=== PATIENT | female | born 1975 ===

== ENCOUNTER 2017-06-25 19:23 | Emergency (ER) | payer OTHER ==
[2017-06-25 19:33] VITALS: TEMP 97.4; BMI 27.6
--- NOTE | 2017-06-25 20:25 | PDOC ---
History of Present Illness <Heidi Quinonez - Last Filed: 06/25/17 22:34> - General History Source: Patient Exam Limitations: No Limitations - History of Present Illness Initial Comments: 06/25/17 20:25 The patient is a 42 year old female, (), with no significant past medical history who presents to the ED with complaints of epigastric pain since earlier today. The patient reports constant epigastric pain radiating to her upper and mid back. She states she visited her OBGYN last week and had a normal US showing a live uterine at 8 weeks with heart tones. Denies lower back pain. Denies pelvic cramping. Denies vaginal bleeding. Denies nausea, vomiting, or diarrhea. Denies chest pain or shortness of breath. Denies any other symptoms. <Ashok Munguia - Last Filed: 06/25/17 22:35> - General Chief Complaint: Pain Stated Complaint: PAIN ( 12WKS ) Time Seen by Provider: 06/25/17 20:08 Past History - Past Medical History COPD: No - Reproductive History Is Patient Now?: Yes - Immunization History Immunization Up to Date: Yes - Suicide/Smoking/Psychosocial Hx Smoking History: Never smoked <Heidi Quinonez - Last Filed: 06/25/17 22:34> <Ashok Munguia - Last Filed: 06/25/17 22:35> - Past Medical History Allergies/Adverse Reactions: Allergies Allergy/AdvReac Type Severity Reaction Status Date / Time No Known Allergies Allergy Verified 06/25/17 19:28 Review of Systems - Review of Systems Able to Perform ROS?: Yes Comments:: 06/25/17 20:26 CONSTITUTIONAL: Absent: fever, chills, diaphoresis, generalized weakness, malaise, loss of appetite HEENT: Absent: rhinorrhea, nasal congestion, throat pain, throat swelling, difficulty swallowing, mouth swelling, ear pain, eye pain, visual Changes CARDIOVASCULAR: Absent: chest pain, syncope, palpitations, irregular heart rate, lightheadedness , peripheral edema RESPIRATORY: Absent: cough, shortness of breath, dyspnea with exertion, orthopnea, wheezing, stridor, hemoptysis GASTROINTESTINAL: + epigastric pain Absent: abdominal distension, nausea, vomiting, diarrhea, constipation, melena, hematochezia GENITOURINARY: Absent: dysuria, frequency, urgency, hesitancy, hematuria, flank pain, genital pain MUSCULOSKELETAL: + back pain Absent: joint swelling SKIN: Absent: rash, itching, pallor HEMATOLOGIC/IMMUNOLOGIC: Absent: easy bleeding, easy bruising, lymphadenopathy, frequent infections ENDOCRINE: Absent: unexplained weight gain, unexplained weight loss, heat intolerance, cold intolerance NEUROLOGIC: Absent: headache, focal weakness or paresthesias, dizziness, unsteady gait, seizure, mental status changes, bladder or bowel incontinence PSYCHIATRIC: Absent: anxiety, depression, suicidal or homicidal ideation, hallucinations. All Other Systems: Reviewed and Negative <Ashok Munguia - Last Filed: 06/25/17 22:35> *Physical Exam - Vital Signs Last Vital Signs Temp Pulse Resp BP Pulse Ox 97.4 F L 70 20 86/58 100 06/25/17 19:28 06/25/17 19:28 06/25/17 19:28 06/25/17 19:28 06/25/17 19:28 <Heidi Quinonez - Last Filed: 06/25/17 22:34> - Vital Signs Last Vital Signs Temp Pulse Resp BP Pulse Ox 97.4 F L 70 20 86/58 100 06/25/17 19:28 06/25/17 19:28 06/25/17 19:28 06/25/17 19:28 06/25/17 19:28 - Physical Exam Comments: 06/25/17 20:26 GENERAL: Well developed, well nourished. Awake and alert. No acute distress. HEENT: Normocephalic, atraumatic. PERRLA, EOMI. No conjunctival pallor. Sclera are non- icteric. Moist mucous membranes. Oropharynx is clear. NECK: Supple. Full ROM. No JVD. Carotid pulses 2+ and symmetric, without bruits. No thyromegaly. No lymphadenopathy. CARDIOVASCULAR: Regular rate and rhythm. No murmurs, rubs, or gallops. Distal pulses are 2+ and symmetric. PULMONARY: No evidence of respiratory distress. Lungs clear to auscultation bilaterally. No wheezing, rales or rhonchi. ABDOMINAL: + Epigastric tenderness, epigastric pain radiating to her shoulder blades Soft. Non-distended. No rebound or guarding. No organomegaly. Normoactive bowel sounds. MUSCULOSKELETAL Normal range of motion at all joints. No bony deformities or tenderness. No CVA tenderness. EXTREMITIES: No cyanosis. No clubbing. No edema. No calf tenderness. SKIN: Warm and dry. Normal capillary refill. No rashes. No jaundice. NEUROLOGICAL: Alert, awake, appropriate. Cranial nerves 2-12 intact. No deficits to light touch and temperature in face, upper extremities and lower extremities. No motor deficits in the in face, upper extremities and lower extremities. Normoreflexic in the upper and lower extremities. Normal speech. Toes are down- going bilaterally. Gait is normal without ataxia. PSYCHIATRIC: Cooperative. Good eye contact. Appropriate mood and affect. <Ashok Munguia - Last Filed: 06/25/17 22:35> ED Treatment Course - LABORATORY CBC & Chemistry Diagram: 06/25/17 20:20 06/25/17 20:20 - RADIOLOGY Radiology Studies Ordered: Category Date Time Status ABDOMEN US -LIMITED [US] Stat Ultrasound 06/25/17 20:23 Ordered <Heidi Quinonez - Last Filed: 06/25/17 22:34> - LABORATORY CBC & Chemistry Diagram: 06/25/17 20:20 06/25/17 20:20 - RADIOLOGY Radiograph Interpretation: 06/25/17 22:34 EXAM: Ultrasound abdomen, right upper quadrant FINDINGS: 1. The liver, visualized portion of the pancreas, common hepatic duct, right kidney, main portal vein and upper abdominal aorta are unremarkable in appearance. 2. The gallbladder is moderately distended and without evidence of gallstones or gallbladder wall thickening. There is no demonstration of pericholecystic fluid. No definite ultrasound evidence of acute cholecystitis. Reported by: Imaging saxophone player <Ashok Munguia - Last Filed: 06/25/17 22:35> Medical Decision Making - Medical Decision Making 06/25/17 22:29 42 yo Female 2, para 1, presents with epigastric pain and vomiting. Patient has a follow-up appointment and have a pelvic ultrasound last week that showed an IUP of 8 weeks. She is [facility] at[facility] for her care She denies any pelvic cramping or vaginal bleeding. Exam she has some mild epigastric tenderness to deep palpation, but there was no guarding or rebound She does not have fever or chills. She does not have diarrhea. Ultrasound of the abdomen and right upper quadrant shows that the gallbladder is moderately distended without any evidence of gallstones or gallbladder wall thickening. There is no evidence for acute cholecystitis Liver, pancreas and right kidney and upper abdominal aorta are unremarkable -Chemistries were reviewed in the patient has a normal lipase and her liver function tests are within normal limits Impression gastritis Patient discharged home <Heidi Quinonez - Last Filed: 06/25/17 22:34> *DC/Admit/Observation/Transfer <Heidi Quinonez - Last Filed: 06/25/17 22:34> - Attestations Scribe Attestion: 06/25/17 20:26 Documentation prepared by Ashok Munguia, acting as medical parasitologist for Heidi Quinonez MD <Ashok Munguia - Last Filed: 06/25/17 22:35> Diagnosis at time of Disposition: Gastritis Qualifiers: Gastritis type: unspecified gastritis Chronicity: acute Gastritis bleeding: without bleeding Qualified Code(s): K29.00 - Acute gastritis without bleeding - Discharge Dispostion Disposition: HOME Condition at time of disposition: Stable - Patient Instructions Printed Discharge Instructions: DI for Gastritis Additional Instructions: please avoid fatty or fried foods followup with your floor hand
[2017-06-25 20:35] LABS: BASO % 0.6 % (0-2.0); EOS % 1.8 % (0-4.5); HEMATOCRIT 32.5 % (32.4-45.2); LYMPH % 10.7 % (8-40); MCH 29.3 pg (25.7-33.7); MEAN CELL VOLUME 86.1 fl (80-96); MEAN PLT VOLUME 9.3 fl (7.5-11.1); NEUT % 80.9 % (42.8-82.8); PLATELET COUNT 229 K/MM3 (134-434); RBC 3.77 M/mm3 (3.60-5.2); RDW 14.3 % (11.6-15.6); WHITE BLOOD COUNT 13.7 K/mm3 (4.0-10.0)
[2017-06-25 21:05] LABS: ALBUMIN 3.1 g/dl (3.4-5.0); ANION GAP 6 (8-16); BILIRUBIN,TOTAL 0.2 mg/dL (0.2-1.0); BLOOD UREA NITROGEN 7 mg/dL (7-18); CALCIUM 8.4 mg/dL (8.5-10.1); CHLORIDE 106 mmol/L (98-107); CO2 26 mmol/L (21-32); CREATININE 0.5 mg/dL (0.55-1.02); GLUCOSE,RANDOM 111 mg/dL (74-106); POTASSIUM 4.2 mmol/L (3.5-5.1); SGOT/AST 16 U/L (15-37); SGPT/ALT 21 U/L (12-78); SODIUM 138 mmol/L (136-145)
[2017-06-25 21:06] LABS: ALK PHOS 56 U/L (45-117)
[2017-06-25] MEDS ORDERED: ACETAMINOPHEN 325 MG TABLET (FP) PO ONE (21:41)
[2017-06-25] MEDS ORDERED: ACETAMINOPHEN 325 MG TABLET (FP) ONE (21:50)
[2017-06-25 23:03] VITALS: BP 100/60; PULSE 80
== END 2017-06-25 23:02 | disposition home or self-care (01) ==
LOC: JER 19:23
DX: O99.611 Diseases of the digestive system complicating pregnancy, first trimester (principal); K29.00 Acute gastritis without bleeding; Z3A.01 Less than 8 weeks gestation of pregnancy
CPT/HCPCS: 36415; 76705-TC; 80053; 82962; 83690; 85025; 99282-25

== ENCOUNTER 2018-01-20 02:05 | Inpatient (IN) | payer OTHER ==
[2018-01-20] MEDS ORDERED: ELECTROLYTE-148 SOLN 500 ML IV ONE ×2 (03:00→04:00)
[2018-01-20] MEDS ORDERED: ELECTROLYTE-148 SOLN 1,000 ML IV ONE (04:30)
[2018-01-20] MEDS ORDERED: BUTORPHANOL TARTRATE 1 MG/ML VIAL IVPB ONE (04:30)
[2018-01-20] MEDS ORDERED: PROMETHAZINE HCL 25 MG/1 ML VIAL IVPB ONE (04:30)
[2018-01-20 05:05] VITALS: BMI 30.7
[2018-01-20 05:11] LABS: BASO % 0.9 % (0-2.0); EOS % 1.8 % (0-4.5); HEMATOCRIT 32.1 % (32.4-45.2); HEMOGLOBIN 10.4 GM/dL (10.7-15.3); LYMPH % 17.4 % (8-40); MCH 28.5 pg (25.7-33.7); MCHC 32.4 g/dl (32.0-36.0); MEAN CELL VOLUME 87.9 fl (80-96); MONO % 6.1 % (3.8-10.2); NEUT % 73.8 % (42.8-82.8); PLATELET COUNT 152 K/MM3 (134-434); RBC 3.65 M/mm3 (3.60-5.2); RDW 13.8 % (11.6-15.6); WHITE BLOOD COUNT 12.3 K/mm3 (4.0-10.0)
[2018-01-20 05:23] LABS: INR 0.87 (0.83-1.09); PROTHROMBIN TIME (PATIENT) 10.2 SEC (9.7-13.0)
[2018-01-20 05:26] LABS: ACTIVATED PTT 28.1 SECONDS (25.2-36.5)
[2018-01-20 05:28] LABS: ANION GAP 10 MMOL/L (8-16); BLOOD UREA NITROGEN 6 mg/dL (7-18); CALCIUM 8.3 mg/dL (8.5-10.1); CHLORIDE 106 mmol/L (98-107); CO2 24 mmol/L (22-28); CREATININE 0.5 mg/dL (0.55-1.3); GLUCOSE,RANDOM 87 mg/dL (74-106); POTASSIUM 3.6 mmol/L (3.5-5.1); SODIUM 139 mmol/L (136-145)
[2018-01-20] MEDS: OXYTOCIN 20 UNITS in 0.9% NS 20 UNIT/1,000 ML INFUS.BAG IV SCH ×2 (05:50→10:20)
[2018-01-20] MEDS ORDERED: WITCH HAZEL 50% (TUCKS) 40 PAD/JAR PAD TP PRN (06:09)
[2018-01-20] MEDS ORDERED: BENZOCAINE 28 GM HEMORRHOIDAL OINTMENT TP PRN (06:09)
[2018-01-20] MEDS ORDERED: BENZOCAINE 20% 57 GM BOTTLE TP PRN (06:09)
[2018-01-20] MEDS ORDERED: METHYLERGONOVINE MALEATE 0.2 MG/1 ML AMP IM PRN (06:09)
[2018-01-20] MEDS ORDERED: BISACODYL 10 MG SUPP.RECT RC PRN (06:09)
--- NOTE | 2018-01-20 06:11 | PN ---
Delivery - Delivery Vaginal Delivery: Spontaneous Type of Anesthesia: Local Episiotomy/Laceration: Perineal Extension/lac Delivery, Single - Hydro Feeding Plan Initial Plan: Elected not to breastfeed exclusively throughout hospitalization
[2018-01-20] MEDS ORDERED: D5W-LR W/ 20 UNITS OXYTOCIN 1,000 ML IV SCH (06:15)
--- NOTE | 2018-01-20 06:18 | HP ---
Past Medical History - Primary Care Physician PCP:: Glo Harrington - Admission Chief Complaint: Lablor/Preciptous delivery History of Present Illness: 42 yo 39.2 by usg AMA gestational DM with precipitous delivery Baby doing well History Source: Patient Limitations to Obtaining History: No Limitations - Past Medical History ...: 2 ...Para: 1 ...Term: 1 ...: 0 ...Spon : 0 ...Induced : 0 ...Multiple Gestation: 0 ...LMP: 04/23/17 ... Weeks Gestation by Dates: 38.6 ...EDC by Dates: 01/28/18 ...EDC by Sono: 01/25/18 Endocrine: Yes: Diabetes Mellitus - Past Surgical History Past Surgical History: Yes: None Hx Myomectomy: No Hx Transabdominal Cerclage: No - Smoking History Smoking history: Never smoked Have you smoked in the past 12 months: No - Alcohol/Substance Use Hx Alcohol Use: No History of Substance Use: reports: None - Social History Usual Living Arrangement: Yes: With Spouse History of Recent Travel: No Home Medications - Allergies Allergies/Adverse Reactions: Allergies Allergy/AdvReac Type Severity Reaction Status Date / Time No Known Allergies Allergy Verified 01/20/18 02:49 Review of Systems - Review of Systems Constitutional: reports: No Symptoms Eyes: reports: No Symptoms HENT: reports: No Symptoms Neck: reports: No Symptoms Cardiovascular: reports: No Symptoms Respiratory: reports: No Symptoms Gastrointestinal: reports: No Symptoms Genitourinary: reports: No Symptoms Breasts: reports: No Symptoms Reported Musculoskeletal: reports: No Symptoms Integumentary: reports: No Symptoms Neurological: reports: No Symptoms Endocrine: reports: No Symptoms Hematology/Lymphatic: reports: No Symptoms Psychiatric: reports: No Symptoms Physical Exam - Maternity Vital Signs: Vital Signs Temperature 98.6 F 01/20/18 02:50 Pulse Rate 68 01/20/18 02:50 Respiratory Rate 19 01/20/18 02:50 Blood Pressure 123/81 01/20/18 02:50 O2 Sat by Pulse Oximetry (%) - Labs Lab Results: CBC, BMP 01/20/18 04:58 01/20/18 04:58 Hemorrhage Risk Assessment - Risk Factors Risk Score: 0 Risk Level: Low Risk Problem List - Problems (1) Normal vaginal delivery Code(s): O80 - ENCOUNTER FOR FULL-TERM UNCOMPLICATED DELIVERY Assessment/Plan IUP @ 39 wk gestational DM 39.2 wk by usg AMA Plan precipitous vaginal delivery
[2018-01-20] MEDS: ACETAMINOPHEN 325 MG TABLET (FP) PO ONE ×2 (06:37→16:20)
[2018-01-20] MEDS: FERROUS SO4 325 MG TABLET (FP) PO SCH ×2 (08:38→17:49)
[2018-01-20] MEDS ORDERED: OXYTOCIN 20 UNITS in 0.9% NS 20 UNIT/1,000 ML INFUS.BAG IV ONE (08:44)
[2018-01-20] MEDS ORDERED: LIDOCAINE HCL 1% PRESERVATIVE FREE - 30ML VIAL ONE (08:54)
--- NOTE | 2018-01-20 09:08 | PN ---
Progress Note (short form) - Note Progress Note: Came to evaluate patient for bleeding from periurethral laceration. Laceration repaired with 3-0 vicryl suture, hemostatic after repair. norwood catheter placed, to remove this evening approx 200cc of bleeding noted on gaby and sponges total from prior to and after repair will check CBC at noon ok for regular diet
[2018-01-20] MEDS: PRENATAL VITAMINS W/ FOLIC ACID TABLET (FP) PO SCH (10:20)
[2018-01-20] MEDS ORDERED: FERROUS SO4 325 MG TABLET (FP) PO ONE (10:45)
[2018-01-20] MEDS ORDERED: TUBERCULIN PPD 5 TU/0.1ML SYRINGE (IN PATIENT USE ONLY) ID ONE (12:00)
[2018-01-20 13:48] LABS: BASO % 0.2 % (0-2.0); EOS % 0.1 % (0-4.5); HEMATOCRIT 27.2 % (32.4-45.2); HEMOGLOBIN 8.7 GM/dL (10.7-15.3); LYMPH % 6.2 % (8-40); MCH 28.3 pg (25.7-33.7); MCHC 32.1 g/dl (32.0-36.0); MEAN CELL VOLUME 88.4 fl (80-96); MEAN PLT VOLUME 10.9 fl (7.5-11.1); NEUT % 87.5 % (42.8-82.8); PLATELET COUNT 154 K/MM3 (134-434); RBC 3.07 M/mm3 (3.60-5.2); RDW 13.9 % (11.6-15.6); WHITE BLOOD COUNT 14.7 K/mm3 (4.0-10.0)
[2018-01-20] MEDS: IBUPROFEN 600 MG TABLET (FP) PO PRN (16:19)
[2018-01-21] MEDS: ACETAMINOPHEN 325 MG TABLET (FP) PO PRN ×2 (01:23→16:24)
[2018-01-21] MEDS: IBUPROFEN 600 MG TABLET (FP) PO PRN ×2 (01:24→16:23)
[2018-01-21 08:15] LABS: BASO % 0.5 % (0-2.0); EOS % 1.7 % (0-4.5); HEMATOCRIT 27.3 % (32.4-45.2); HEMOGLOBIN 8.7 GM/dL (10.7-15.3); LYMPH % 14.7 % (8-40); MCH 28.4 pg (25.7-33.7); MCHC 31.9 g/dl (32.0-36.0); MEAN PLT VOLUME 10.5 fl (7.5-11.1); NEUT % 78.1 % (42.8-82.8); PLATELET COUNT 139 K/MM3 (134-434); RBC 3.06 M/mm3 (3.60-5.2); RDW 14.1 % (11.6-15.6); WHITE BLOOD COUNT 10.2 K/mm3 (4.0-10.0)
[2018-01-21] MEDS: FERROUS SO4 325 MG TABLET (FP) PO SCH ×2 (08:20→17:30)
[2018-01-21] MEDS: PRENATAL VITAMINS W/ FOLIC ACID TABLET (FP) PO SCH (09:18)
--- NOTE | 2018-01-21 21:00 | PN ---
Post Progress Note - Subjective Subjective: Pt doing well. No acute events overnight,no complaints Type of Delivery: Vital Signs: Vital Signs Temperature 98.5 F 01/21/18 10:00 Pulse Rate 103 H 01/21/18 10:00 Respiratory Rate 20 01/21/18 10:00 Blood Pressure 110/74 01/21/18 10:00 O2 Sat by Pulse Oximetry (%) 99 01/20/18 06:45 Breast Exam: Yes: Soft Uterus: Yes: Fundus Firm Lochia: Yes: Rubra Lochia, amount: Small Perineum: Yes: Laceration Activity: Ambulating - Labs Labs: CBC WBC 10.2 K/mm3 (4.0-10.0) H 01/21/18 07:38 RBC 3.06 M/mm3 (3.60-5.2) L 01/21/18 07:38 Hgb 8.7 GM/dL (10.7-15.3) L 01/21/18 07:38 Hct 27.3 % (32.4-45.2) L 01/21/18 07:38 MCV 89.0 fl (80-96) 01/21/18 07:38 MCH 28.4 pg (25.7-33.7) 01/21/18 07:38 MCHC 31.9 g/dl (32.0-36.0) L 01/21/18 07:38 RDW 14.1 % (11.6-15.6) 01/21/18 07:38 Plt Count 139 K/MM3 (134-434) 01/21/18 07:38 MPV 10.5 fl (7.5-11.1) 01/21/18 07:38 Absolute Neuts (auto) 8.0 K/mm3 (1.5-8.0) 01/21/18 07:38 Neutrophils % 78.1 % (42.8-82.8) 01/21/18 07:38 Lymphocytes % 14.7 % (8-40) D 01/21/18 07:38 Monocytes % 5.0 % (3.8-10.2) 01/21/18 07:38 Eosinophils % 1.7 % (0-4.5) D 01/21/18 07:38 Basophils % 0.5 % (0-2.0) 01/21/18 07:38 Nucleated RBC % 0 % (0-0) 01/21/18 07:38 Problem List - Problems (1) Normal vaginal delivery Code(s): O80 - ENCOUNTER FOR FULL-TERM UNCOMPLICATED DELIVERY (2) Anemia Code(s): D64.9 - ANEMIA, UNSPECIFIED Assessment/Plan regular diet ambulation prenatals ajd PO iron routine care
[2018-01-21] MEDS ORDERED: SENNOSIDES/DOCUSATE COMBO (SENNA PLUS) TABLET (UD) PO PRN (22:00)
[2018-01-22] MEDS: IBUPROFEN 600 MG TABLET (FP) PO PRN ×2 (00:59→09:50)
[2018-01-22] MEDS: ACETAMINOPHEN 325 MG TABLET (FP) PO PRN ×2 (00:59→09:53)
[2018-01-22 07:42] VITALS: BP 114/64; PULSE 86; TEMP 98.1
[2018-01-22] MEDS: FERROUS SO4 325 MG TABLET (FP) PO SCH (08:15)
--- NOTE | 2018-01-22 08:56 | DS ---
Physical Exam-LEGAL INTERN Vital Signs: Vital Signs Temperature 98.1 F 01/22/18 07:20 Pulse Rate 86 01/22/18 07:20 Respiratory Rate 18 01/22/18 07:20 Blood Pressure 114/64 01/22/18 07:20 O2 Sat by Pulse Oximetry (%) 99 01/20/18 06:45 Constitutional: Yes: Well Nourished, No Distress Neck: Yes: WNL Cardiovascular: Yes: WNL Respiratory: Yes: WNL, Regular, CTA Bilaterally Gastrointestinal: Yes: WNL, Normal Bowel Sounds, Soft Breast(s): Yes: WNL Musculoskeletal: Yes: WNL Extremities: Yes: WNL Neurological: Yes: WNL, Alert, Oriented Labs: CBC, BMP 01/21/18 07:38 01/20/18 04:58 Delivery - Delivery Vaginal Delivery: Spontaneous Type of Anesthesia: Local Episiotomy/Laceration: Perineal Extension/lac EBL (cc): 400 Delivery, Single - Stages of Labor Date 1st Stage Initiatied: 01/19/18 Time 1st Stage Initiated: 19:00 Date 2nd Stage Initiated: 01/20/18 Time 2nd Stage Initiated: 05:35 Date of Delivery: 01/20/18 Time of Delivery: 05:42 Time Placenta Delivered: 05:47 - Condition of Contact Lens Blocker And Cutter/Sql Tech Present: No Infant Gender: Female Weight: 6 lb 4 oz Position: Left, OA Total Hours ROM (Hrs/Mins): 12 minutes - 1 Minute Total Score: 9 5 Minutes Total Score: 9 - Feeding Plan Initial Plan: Elected not to breastfeed exclusively throughout hospitalization Discharge Summary Reason For Visit: ADMIT LABOR Current Active Problems Anemia (Acute) Normal vaginal delivery (Acute) Condition: Good - Instructions Disposition: HOME - Home Medications Comprehensive Discharge Medication List: Ambulatory Orders Ibuprofen [Motrin -] 600 mg PO QID #28 tablet 01/22/18
[2018-01-22] MEDS: PRENATAL VITAMINS W/ FOLIC ACID TABLET (FP) PO SCH (09:40)
== END 2018-01-22 12:15 | disposition home or self-care (01) | DRG 560 ==
LOC: JDEL 02:05 → JLDR 04:30 → J3W 11:45
PROVIDERS: ADMIT Obstetrics & Gynecology; ATTEND Obstetrics & Gynecology
PROC: 0KQM0ZZ Repair Perineum Muscle, Open Approach (ICD-10-PCS; principal; 2018-01-20)
PROC: 10E0XZZ Delivery of Products of Conception, External Approach (ICD-10-PCS; 2018-01-20)
DX: O24.429 Gestational diabetes mellitus in childbirth, unspecified control (principal); O70.1 Second degree perineal laceration during delivery; O99.02 Anemia complicating childbirth; Z3A.39 39 weeks gestation of pregnancy; Z37.0 Single live birth
CPT/HCPCS: 36415; 59409; 80048; 82962; 85025; 85610; 85730; 86593; 86850; 86900; 86901

== ENCOUNTER 2018-12-13 01:52 | Emergency (ER) | payer OTHER ==
[2018-12-13 02:07] VITALS: BP 102/67; TEMP 98.2; BMI 26.3
--- NOTE | 2018-12-13 02:27 | PDOC ---
Attending Attestation - Resident Resident Name: Abril Murcia - ED Attending Attestation I have performed the following: I have examined & evaluated the patient, The case was reviewed & discussed with the resident, I agree w/resident's findings & plan - HPI HPI: 12/13/18 06:42 see resident hpi - Physicial Exam PE: 12/13/18 06:42 agree with resident exam - Medical Decision Making 12/13/18 06:42 43 yo female with karla/epigastric pain and vomting CT abd and pelvis shows a right sided ovarian cyst will hold for US in am, plan to sign out to day shift
[2018-12-13] MEDS ORDERED: SODIUM CHLORIDE 0.9% 500 ML INFUS.BAG IV ONE (02:50)
[2018-12-13] MEDS ORDERED: FAMOTIDINE 20 MG/50 ML IVPB 20 MG/50 ML MG IVPB ONE (02:50)
--- NOTE | 2018-12-13 02:50 | PDOC ---
History of Present Illness - General Chief Complaint: Pain Stated Complaint: ABDOMINAL PAIN Time Seen by Provider: 12/13/18 02:04 - History of Present Illness Initial Comments: 12/13/18 03:53 43y/o F hx of gestational diabetes, presents to the ED with 2 days of epigastric and RUQ pain. She experienced similar pain 2 months ago and was treated with a course of antibiotics for about 14 days. She does not remember what they are. She experienced resolution of her symptoms after that treatment prior to this new episode. The pain is sharp 9/10 pain radiating to RUQ and right back. Pain was initially relieved after emesis yesterday, but no such relief experienced today. She has taken tylenol and zantac with no relief prior to ED visit. Endorses chest tightness but no pain or shortness of breath. she has had 4 episodes of non-bloody emesis and nausea, denies any diarrhea, bloody stools, tarry stools, fevers, chills, flank pain, dysuria, hematuria. Her last bowel movement was at 7pm and was normal. Past History - Past Medical History Allergies/Adverse Reactions: Allergies Allergy/AdvReac Type Severity Reaction Status Date / Time No Known Allergies Allergy Verified 12/13/18 02:06 Home Medications: Ambulatory Orders Ibuprofen [Motrin -] 600 mg PO QID #28 tablet 01/22/18 Asthma: No Cancer: No Cardiac Disorders: No COPD: No Diabetes: Yes (Gestational) HTN: No Seizures: No Thyroid Disease: No - Immunization History Immunization Up to Date: Yes - Psycho Social/Smoking Cessation Hx Smoking History: Never smoked Have you smoked in the past 12 months: No Information on smoking cessation initiated: No Hx Alcohol Use: No Drug/Substance Use Hx: No Hx Substance Use Treatment: No *Physical Exam - Vital Signs Last Vital Signs Temp Pulse Resp BP Pulse Ox 98.2 F 89 19 102/67 100 12/13/18 02:05 12/13/18 02:05 12/13/18 02:05 12/13/18 02:05 12/13/18 02:05 - Physical Exam Comments: 12/13/18 03:39 PE: GENERAL: Awake, alert, and fully oriented, uncomfortable. HEAD: No signs of trauma, normocephalic, atraumatic EYES: EOMI, sclera anicteric, conjunctiva clear ENT: Auricles normal inspection, hearing grossly normal, nares patent, oropharynx clear without exudates. Moist mucosa NECK: Normal ROM, supple, no lymphadenopathy, JVD, or masses LUNGS: No distress, speaks full sentences, clear to auscultation bilaterally HEART: Regular rate and rhythm, normal S1 and S2, no murmurs, rubs or gallops, peripheral pulses normal and equal bilaterally. ABDOMEN: Soft, right upper quadrant and epigastric tenderness on deep palpation.. No guarding, no rebound. No masses, no cva tenderness EXTREMITIES : Normal inspection, Normal range of motion, no edema. No clubbing or cyanosis NEUROLOGICAL: Cranial nerves II through XII grossly intact. Normal speech, normal gait, no focal sensorimotor deficits SKIN: Warm, Dry, normal turgor, no rashes or lesions noted 12/13/18 03:40 ED Treatment Course - LABORATORY CBC & Chemistry Diagram: 12/13/18 03:10 12/13/18 03:10 Medical Decision Making - Medical Decision Making 12/13/18 03:43 43y/o F hx of gestational diabetes, presents to the ED with 2 days of epigastric and RUQ pain. cbc, cmp, ua, urine culture, serum , lipase, troponin I, Meds: 1L NS, pepcid 20mg IV, tylenol 1g IV. denies nausea at this time. EKG normal sinus rhythm normal EKG 12/13/18 03:59 12/13/18 07:08 Pt doing better at this time. CT abdomen and pelvis FINDINGS: Lung bases are clear. The visualized cardiac chambers are normal size and configuration. A 2.9 cm left hepatic lobe hemangioma is noted. 11 mm low- attenuation right adrenal nodule may be an adenoma. Normal liver, gallbladder, pancreas, spleen, left adrenal gland and kidneys. The stomach and abdominal small and large bowel are normal. There is no aortic aneurysm. There is no significant retroperitoneal lymphadenopathy. The pelvic small and large bowel are normal. The appendix is normal. A 14 mm involuting right ovarian cyst is noted. The uterus and left adnexal structures are normal. Urinary bladder is unremarkable. There is no pelvic free fluid. No discrete pelvic lymphadenopathy is identified. IMPRESSION: No definite evidence of acute pathology. 14 mm involuting right ovarian cyst without free fluid. 11 mm right adrenal nodule may be an adenoma. Pending TVUS RUQ u/s anticipate discharge if ultrasound is negative. Sign out to Dr. Katz 12/13/18 07:13 Discharge - Discharge Information Problems reviewed: Yes Clinical Impression/Diagnosis: Right upper quadrant abdominal pain Gastritis Qualifiers: Gastritis type: unspecified gastritis Chronicity: unspecified Gastritis bleeding: presence of bleeding unspecified Qualified Code(s): K29.70 - Gastritis , unspecified, without bleeding Condition: Improved Disposition: HOME - Admission No - Follow up/Referral Referrals: Maru Jiang MD [Primary Care Provider] - - Patient Discharge Instructions - Post Discharge Activity
[2018-12-13 03:25] LABS: BASO % 1.1 % (0-2.0); EOS % 7.4 % (0-4.5); HEMATOCRIT 31.3 % (32.4-45.2); LYMPH % 25.2 % (8-40); MEAN CELL VOLUME 81.4 fl (80-96); MEAN PLT VOLUME 9.9 fl (7.5-11.1); MONO % 8.3 % (3.8-10.2); PLATELET COUNT 221 K/MM3 (134-434); RBC 3.85 M/mm3 (3.60-5.2); RDW 16.2 % (11.6-15.6); WHITE BLOOD COUNT 5.7 K/mm3 (4.0-10.0)
[2018-12-13] MEDS ORDERED: ACETAMINOPHEN 1000 MG/100 ML VIAL (NON FORMULARY) IVPB ONE (03:28)
[2018-12-13 03:32] LABS: INR 1.08 (0.83-1.09); PROTHROMBIN TIME (PATIENT) 12.7 SEC (9.7-13.0)
[2018-12-13] MEDS ORDERED: ACETAMINOPHEN INJECTION 100 ML IVPB ONE (03:36)
[2018-12-13 03:54] LABS: ALBUMIN 3.6 g/dl (3.4-5.0); ALK PHOS 76 U/L (45-117); ANION GAP 6 MMOL/L (8-16); BILIRUBIN,TOTAL 0.8 mg/dL (0.2-1); BLOOD UREA NITROGEN 8.2 mg/dL (7-18); CALCIUM 8.5 mg/dL (8.5-10.1); CHLORIDE 108 mmol/L (98-107); CO2 26 mmol/L (21-32); CREATININE 0.6 mg/dL (0.55-1.3); GLUCOSE,RANDOM 98 mg/dL (74-106); LIPASE 205 U/L (73-393); POTASSIUM 3.3 mmol/L (3.5-5.1); SGOT/AST 65 U/L (15-37); SGPT/ALT 32 U/L (13-61); SODIUM 140 mmol/L (136-145); TOT PROT 7.4 g/dl (6.4-8.2)
[2018-12-13 05:22] LABS: PH,URINE 8.5 (5.0-8.0); URINE APPEARANCE CLEAR; URINE BILIRUBIN NEGATIVE (NEGATIVE); URINE COLOR YELLOW; URINE GLUCOSE (UA) NEGATIVE (NEGATIVE); URINE KETONE NEGATIVE (NEGATIVE); URINE PROTEIN NEGATIVE (NEGATIVE)
[2018-12-13 05:23] LABS: URINE LEUK ESTERASE NEGATIVE (NEGATIVE); URINE NITRITE NEGATIVE (NEGATIVE); URINE UROBILINOGEN 0.2 mg/dL (0.2-1.0)
--- NOTE | 2018-12-13 07:14 | PDOC ---
*Physical Exam - Vital Signs Last Vital Signs Temp Pulse Resp BP Pulse Ox 98.2 F 65 16 102/67 98 12/13/18 07:30 12/13/18 07:30 12/13/18 07:30 12/13/18 02:05 12/13/18 07:30 <Stella Reynolds - Last Filed: 12/13/18 09:33> - Vital Signs Last Vital Signs Temp Pulse Resp BP Pulse Ox 98.2 F 88 18 102/67 99 12/13/18 02:05 12/13/18 06:34 12/13/18 06:34 12/13/18 02:05 12/13/18 06:34 <Quinn Katz - Last Filed: 12/13/18 12:26> ED Treatment Course - LABORATORY CBC & Chemistry Diagram: 12/13/18 03:10 12/13/18 03:10 - ADDITIONAL ORDERS Additional order review: Laboratory Results 12/13/18 12/13/18 12/13/18 04:46 03:10 03:10 PT with INR INR Sodium 140 Potassium 3.3 L Chloride 108 H Carbon Dioxide 26 Anion Gap 6 L BUN 8.2 Creatinine 0.6 Est GFR (CKD-EPI)AfAm 131.22 Est GFR (CKD-EPI)NonAf 113.22 Random Glucose 98 Calcium 8.5 Total Bilirubin 0.8 AST 65 H ALT 32 Alkaline Phosphatase 76 Troponin I < 0.02 Total Protein 7.4 Albumin 3.6 Lipase 205 Serum , Qual Urine Color Yellow Urine Appearance Clear Urine pH 8.5 H Ur Specific [place] 1.064 H Urine Protein Negative Urine Glucose (UA) Negative Urine Ketones Negative Urine Blood Negative Urine Nitrite Negative Urine Bilirubin Negative Urine Urobilinogen 0.2 Ur Leukocyte Esterase Negative Blood Type O POSITIVE Antibody Screen Negative 12/13/18 12/13/18 03:10 03:10 PT with INR 12.70 INR 1.08 Sodium Potassium Chloride Carbon Dioxide Anion Gap BUN Creatinine Est GFR (CKD-EPI)AfAm Est GFR (CKD-EPI)NonAf Random Glucose Calcium Total Bilirubin AST ALT Alkaline Phosphatase Troponin I Total Protein Albumin Lipase Serum , Qual Negative Urine Color Urine Appearance Urine pH Ur Specific [place] Urine Protein Urine Glucose (UA) Urine Ketones Urine Blood Urine Nitrite Urine Bilirubin Urine Urobilinogen Ur Leukocyte Esterase Blood Type Antibody Screen 12/13/18 03:10 RBC 3.85 MCV 81.4 MCHC 32.0 RDW 16.2 H MPV 9.9 Neutrophils % 58.0 D Lymphocytes % 25.2 D Monocytes % 8.3 Eosinophils % 7.4 H D Basophils % 1.1 - Medications Given in the ED: ED Medications Discontinued Medications Generic Name Dose Route Start Last Admin Trade Name Vanessa PRN Reason Stop Dose Admin Acetaminophen 1,000 mg 12/13/18 03:28 12/13/18 03:39 Ofirmev Injection - IVPB 12/13/18 03:29 1,000 mg ONCE ONE Administration Famotidine/Sodium Chloride 20 mg in 50 mls @ 100 mls/hr 12/13/18 02:50 04:42 Pepcid 20 Mg Premixed Ivpb - IVPB 12/13/18 03:19 100 mls/hr ONCE ONE Administration Sodium Chloride 1,000 ml 12/13/18 02:50 12/13/18 03:27 Normal Saline - IV 12/13/18 02:51 1,000 ml ONCE ONE Administration <Stella Reynolds - Last Filed: 12/13/18 09:33> - LABORATORY CBC & Chemistry Diagram: 12/13/18 03:10 12/13/18 03:10 - ADDITIONAL ORDERS Additional order review: Laboratory Results 12/13/18 12/13/18 12/13/18 04:46 03:10 03:10 PT with INR INR Sodium 140 Potassium 3.3 L Chloride 108 H Carbon Dioxide 26 Anion Gap 6 L BUN 8.2 Creatinine 0.6 Est GFR (CKD-EPI)AfAm 131.22 Est GFR (CKD-EPI)NonAf 113.22 Random Glucose 98 Calcium 8.5 Total Bilirubin 0.8 AST 65 H ALT 32 Alkaline Phosphatase 76 Troponin I < 0.02 Total Protein 7.4 Albumin 3.6 Lipase 205 Serum , Qual Urine Color Yellow Urine Appearance Clear Urine pH 8.5 H Ur Specific [place] 1.064 H Urine Protein Negative Urine Glucose (UA) Negative Urine Ketones Negative Urine Blood Negative Urine Nitrite Negative Urine Bilirubin Negative Urine Urobilinogen 0.2 Ur Leukocyte Esterase Negative Blood Type O POSITIVE Antibody Screen Negative 12/13/18 12/13/18 03:10 03:10 PT with INR 12.70 INR 1.08 Sodium Potassium Chloride Carbon Dioxide Anion Gap BUN Creatinine Est GFR (CKD-EPI)AfAm Est GFR (CKD-EPI)NonAf Random Glucose Calcium Total Bilirubin AST ALT Alkaline Phosphatase Troponin I Total Protein Albumin Lipase Serum , Qual Negative Urine Color Urine Appearance Urine pH Ur Specific [place] Urine Protein Urine Glucose (UA) Urine Ketones Urine Blood Urine Nitrite Urine Bilirubin Urine Urobilinogen Ur Leukocyte Esterase Blood Type Antibody Screen 12/13/18 03:10 RBC 3.85 MCV 81.4 MCHC 32.0 RDW 16.2 H MPV 9.9 Neutrophils % 58.0 D Lymphocytes % 25.2 D Monocytes % 8.3 Eosinophils % 7.4 H D Basophils % 1.1 - Medications Given in the ED: ED Medications Discontinued Medications Generic Name Dose Route Start Last Admin Trade Name Freq PRN Reason Stop Dose Admin Acetaminophen 1,000 mg 12/13/18 03:28 12/13/18 03:39 Ofirmev Injection - IVPB 12/13/18 03:29 1,000 mg ONCE ONE Administration Famotidine/Sodium Chloride 20 mg in 50 mls @ 100 mls/hr 12/13/18 02:50 04:42 Pepcid 20 Mg Premixed Ivpb - IVPB 12/13/18 03:19 100 mls/hr ONCE ONE Administration Sodium Chloride 1,000 ml 12/13/18 02:50 12/13/18 03:27 Normal Saline - IV 12/13/18 02:51 1,000 ml ONCE ONE Administration <Quinn Katz - Last Filed: 12/13/18 12:26> Medical Decision Making - Medical Decision Making 12/13/18 07:15 EKG shows NSR CBC, CMP normal, neg trop, neg HCG Given 1L NS, pepcid, tylenol w symptom relief. CT AB shows 2.9 cm left hepatic lobe hemangioma, 14mm involuting R ovarian cyst , 1mm R adrenal nodule - possible adenoma. TVUS/RUQ US shows 3.6cm echogenic lesion in L hepatic lobe possibly cavernous hemangioma, 8x5mm cyst R ovary, 1.4cm cyst L ovary, multiple gallstones without cholecystitis Signout from night team. Rubina Brown is a 43y/o F hx of gestational diabetes, presents to the ED with 2 days of epigastric and RUQ pain. No evidence of ACS w neg trop, NSR EKG. Not . Given 1L NS, pepcid, tylenol w symptom relief. CT AB shows 2.9 cm left hepatic lobe hemangioma, 14mm involuting R ovarian cyst, 1mm R adrenal nodule - possible adenoma. TVUS/RUQ US shows 3.6cm echogenic lesion in L hepatic lobe possibly cavernous hemangioma, 8x5mm cyst R ovary, 1.4cm cyst L ovary, multiple gallstones without cholecystitis D/c home w obgyn/pcp f/u, tylenol and ibuprofen instruction for pain <Quinn Katz - Last Filed: 12/13/18 12:26> Discharge <Stella Reynolds - Last Filed: 12/13/18 09:33> - Discharge Information Problems reviewed: Yes - Admission No <Quinn Katz - Last Filed: 12/13/18 12:26> - Discharge Information Clinical Impression/Diagnosis: Right upper quadrant abdominal pain Condition: Improved Disposition: HOME - Follow up/Referral Referrals: Maru Jiang MD [Primary Care Provider] - - Patient Discharge Instructions Patient Printed Discharge Instructions: DI for Abdominal Pain-Adult Additional Instructions: You were seen for abdominal pain. Your labs did not show anything concerning. Your imaging showed some small cysts that need to be followed up, a hemangioma in the liver that needs to be followed up, and a possibly enlarged uterus that needs to be followed up. Please follow up with your primary care doctor regarding your visit, in the next 1-2 days. Also follow up with your [employer] doctor to talk about your CT and ultrasound results. We are giving you referral information for a new [employer] in case you need one. You can take tylenol or ibuprofen as directed on packaging if you continue to have pain. Come back to the ED if you have worsening chest or abdominal pain, vomiting blood, or trouble breathing. Print Language: MICRONESIAN - Post Discharge Activity
[2018-12-13 07:39] VITALS: PULSE 65
--- NOTE | 2018-12-13 14:36 | EKG ---
Test Reason : Blood Pressure : / mmHG Vent. Rate : 071 BPM Atrial Rate : 071 BPM P-R Int : 172 ms QRS Dur : 080 ms QT Int : 404 ms P-R-T Axes : 017 072 059 degrees QTc Int : 439 ms NORMAL SINUS RHYTHM NORMAL ECG NO PREVIOUS ECGS AVAILABLE Confirmed by MARA PENA MD ([id number]) on 12/13/2018 2:36:10 PM Referred By: Confirmed By:MARA PENA MD
== END 2018-12-13 09:50 | disposition home or self-care (01) ==
LOC: JER 01:52
DX: K29.70 Gastritis, unspecified, without bleeding (principal); R10.11 Right upper quadrant pain
CPT/HCPCS: 36415; 74177-TC; 76700-TC; 76830-TC; 80053; 81003; 83690; 84484; 84703; 85025; 85610; 86850; 86900; 86901; 87086; 93005; 93010; 99283-25; J0131

== ENCOUNTER → 2019-09-23 | Day surgery (SDC) | payer OTHER ==
--- NOTE | 2019-09-25 17:12 | PATH ---
Surgical Pathology Report Patient Name: ZAIRA WILSON [facility]. Rec. #: [id number] /Age/Gender: 1975 (Age: 44) / F Account: [id number] Location: RADIOLOGY [facility] Taken: 09/23/2019 Received: 09/23/2019 Reported: 09/25/2019 Physicians: Evelyne Gibson M.D. Specimen(s) Received RIGHT 2.9 CM SOLID MASS Clinical History Palpable mass Ultrasound findings: Suspicious 2.9 cm solid mass ultrasound guided core biopsy Final Diagnosis RIGHT 10:30, CORE BIOPSY: FIBROEPITHELIAL LESION. SEE COMMENT. Comment: Fibroepithelial lesion showing increased stromal cellularity with focal cellular atypia. Immunohistochemistry stain AE1/3 is negative in the stromal cells. The differential diagnoses include phyllodes tumor and fibroadenoma. Clinical correlation is necessary. Immunohistochemical stain AE1/3 performed and interpreted at [facility]. Positive and negative controls (internal if applicable) show appropriate results. Electronically Signed Prudence Fischer M.D. Gross Description Received in formalin labeled "right 10:30," are 8 quinteros-yellow, cylindrical portions of fibroadipose tissue ranging from 0.3-1.0 cm in length and averaging 0.1 cm in diameter. The specimens are submitted in toto in one cassette. Time to formalin fixation: Less than one minute Total formalin fixation time: Approximately 7 hours. /09/23/2019 saudi/09/23/2019
== END | disposition home or self-care (01) ==
LOC: JRADUS-SUR 08:57 → JMAMMO 08:57 → EDSTATUS 09:00
PROVIDERS: ATTEND Physician Assistant
PROC: 0H9T3ZX Drainage of Right Breast, Percutaneous Approach, Diagnostic (ICD-10-PCS; principal; 2019-09-23)
DX: D48.61 Neoplasm of uncertain behavior of right breast (principal)
CPT/HCPCS: 19083; 76642-TC-RT; 77066-TC; 87899; 88305-TC; 88342-TC; A4648; G0279-TC

== ENCOUNTER 2020-03-23 11:52 | Emergency (ER) | payer OTHER ==
[2020-03-23 11:58] VITALS: BP 118/83; PULSE 115; TEMP 97.8; BMI 23.3
[2020-03-23] MEDS ORDERED: SODIUM CHLORIDE 0.9% 500 ML INFUS.BAG IV ONE (13:45)
[2020-03-23 14:33] LABS: BASO % 0.7 % (0-2.0); EOS % 1.6 % (0-4.5); HEMATOCRIT 33.5 % (32.4-45.2); HEMOGLOBIN 10.7 GM/dL (10.7-15.3); LYMPH % 32.1 % (8-40); MCH 26.5 pg (25.7-33.7); MEAN CELL VOLUME 82.8 fl (80-96); MEAN PLT VOLUME 10.2 fl (7.5-11.1); MONO % 16.7 % (3.8-10.2); NEUT % 48.9 % (42.8-82.8); PLATELET COUNT 209 K/MM3 (134-434); RBC 4.05 M/mm3 (3.60-5.2); RDW 15.7 % (11.6-15.6)
[2020-03-23 14:49] LABS: EPI CELLS 19 /uL (0-25.1); HYALINE CASTS 1 /uL (0-3.1); PH,URINE 5.5 (5.0-8.0); URINE APPEARANCE CLOUDY; URINE BACTERIA 243 /uL (0-1359); URINE BILIRUBIN NEGATIVE (NEGATIVE); URINE COLOR RED; URINE GLUCOSE (UA) NEGATIVE (NEGATIVE); URINE KETONE NEGATIVE (NEGATIVE); URINE LEUK ESTERASE 1+ (NEGATIVE); URINE NITRITE NEGATIVE (NEGATIVE); URINE PROTEIN 2+ (NEGATIVE); URINE RBC 11800 /uL (0-23.9); URINE UROBILINOGEN 0.2 mg/dL (0.2-1.0); URINE WBC 11 /uL (0-25.8)
[2020-03-23 14:55] LABS: ALBUMIN 3.5 g/dl (3.4-5.0); CALCIUM 8.6 mg/dL (8.5-10.1)
[2020-03-23 14:56] LABS: BLOOD UREA NITROGEN 8.6 mg/dL (7-18)
[2020-03-23 14:59] LABS: CREATININE 0.6 mg/dL (0.55-1.3)
[2020-03-23 15:00] LABS: BILIRUBIN,TOTAL 0.6 mg/dL (0.2-1); TOT PROT 7.4 g/dl (6.4-8.2)
== END 2020-03-23 19:13 | disposition home or self-care (01) ==
LOC: JER 11:52
DX: O03.4 Incomplete spontaneous abortion without complication (principal)
CPT/HCPCS: 36415; 76830-TC; 80053; 81003; 84702; 85025; 86850; 86900; 86901; 87086; 99284-25